=== PATIENT | female | born 1990 | race Caucasian/White ===

== ENCOUNTER 2017-09-24 07:05 | Emergency (ER) | payer SELFPAY ==
--- NOTE | 2017-09-24 07:18 | ED Physician Documentation ---
General Adult - HISTORIAN Historian: patient - HPI Stated Complaint: dental pain Chief Complaint: General Adult Additional Information: left upper dental pain. Ibuprofen helped in the middle of the night. Face swollen. Onset: hours - ROS CONST: denies: fever - PAST HX Past History: other (just had wisdom teeth extracted) Allergies/Adverse Reactions: Allergies Allergy/AdvReac Type Severity Reaction Status Date / Time No Known Allergies Allergy Verified 09/24/17 07:14 Home Medications: Ambulatory Orders Medication Instructions Recorded NK [NK] 03/31/16 - SOCIAL HX Smoking History: cigarettes (1 PPD) - FAMILY HX Family History: No - VITAL SIGNS Vital Signs: Vital Signs Temp Pulse Resp BP Pulse Ox 140/88 03/31/16 12:20 - REVIEWED ASSESSMENTS Nursing Assessment Reviewed: Yes Vitals Reviewed: Yes General Adult Physical Exam - PHYSICAL EXAM GENERAL APPEARANCE: moderate distress EENT: eye inspection normal, pharynx normal, other (left face swollen. #5 with large cavity. No discteet abscess palpable) NECK: normal inspection, supple RESPIRATORY: no resp distress, breath sounds normal CVS: reg rate & rhythm, heart sounds normal BACK: normal inspection, no CVA tenderness (no vertebral tenderness) SKIN: warm/dry, normal color EXTREMITIES: no evidence of injury NEURO: CN's nml as tested, motor nml, sensation nml Discharge Clincal Impression: Pain due to dental caries Referrals: Primary Doctor,No [Primary Care Provider] - 2 Days Additional Instructions: See the dentist as soon as possible. Condition: Fair Disposition: 01 HOME, SELF-CARE Decision to Admit: NO Decision Time: 07:20
[2017-09-24 07:34] VITALS: BP 138/97
== END 2017-09-24 07:32 | disposition home or self-care (01) ==
LOC: ED 07:05
DX: M02.9 Reactive arthropathy, unspecified (principal)
CPT/HCPCS: 99282

== ENCOUNTER 2018-06-21 15:29 | Emergency (ER) | payer OTHER ==
[2018-06-21] MEDS ORDERED: BENZATHINE IM ONE (15:59)
[2018-06-21] MEDS ORDERED: DISP SYRIN IM ONE (15:59)
[2018-06-21] MEDS ORDERED: PENICILLIN IM ONE (15:59)
--- NOTE | 2018-06-21 16:02 | ED Physician Documentation ---
Sore Throat/Dental Pain - HISTORIAN Historian: patient - HPI Stated Complaint: sore throat Chief Complaint: Sore Throat Onset: hours Further Comments: yes (28 year old male patient presents with complaint of sore throat which started this morning.) - ROS CONST: no problems CVS/RESP: none GI/: denies: nausea, vomiting MS/SKIN/LYMPH: denies: muscle aches NEURO/PSYCH: none - PAST HX Past History: gum disease Allergies/Adverse Reactions: Allergies Allergy/AdvReac Type Severity Reaction Status Date / Time No Known Allergies Allergy Verified 06/21/18 15:57 - SOCIAL HX Smoking History: cigarettes - FAMILY HX Family History: No - VITAL SIGNS Vital Signs: Vital Signs Temp Pulse Resp BP Pulse Ox 97.7 F 82 16 123/65 99 06/21/18 15:32 06/21/18 16:15 06/21/18 16:15 06/21/18 16:15 06/21/18 16:15 - REVIEWED ASSESSMENTS Nursing Assessment Reviewed: Yes Vitals Reviewed: Yes Progress - Progress Progress: Treatment options discussed - patient prefers IM injection rather than PO antibiotics "it hurts to swallow" ED Results Lab/Radiology - Orders Orders: ED Orders Category Date Time Status Rapid Strep [GRP A STREP SCREEN] Stat Lab 06/21/18 15:56 Ordered Penicillin G Benzathine [Bicillin l-A] Med 06/21/18 15:59 Discontinued 1,200,000 units IM NOW ONE Sore throat Physical Exam - EXAM General Appearance: mild distress Mouth/Throat: lips nml, gums nml, voice nml, no drooling, no air way problems, no thrush, membranes nml, pharyngeal erythema, tonsillar exudate Respiratory: no resp. distress, breath sounds nml CVS: reg. rate & rhythm, heart sounds nml Abdomen: soft, no organomegaly, normal bowel sounds, no abdominal bruit, no distension Extremities: non-tender, nml ROM Skin: normal color, warm/dry, NR, INT, PAL, DR Neuro/Psych: oriented x3, mood/affect nml Discharge Clincal Impression: Strep pharyngitis Referrals: Primary Doctor,No [Primary Care Provider] - 2 Days Condition: Stable Disposition: HOME, SELF-CARE Decision to Admit: NO Decision Time: 16:02
[2018-06-21 16:28] VITALS: BP 123/65
== END 2018-06-21 16:15 | disposition home or self-care (01) ==
LOC: ED 15:29
DX: J02.0 Streptococcal pharyngitis (principal); B95.0 Streptococcus, group A, as the cause of diseases classified elsewhere; Z72.0 Tobacco use
CPT/HCPCS: 87880; 96372; 99282; 99284; J0561

== ENCOUNTER 2019-05-01 11:50 | Emergency (ER) | payer SELFPAY ==
--- NOTE | 2019-05-01 12:06 | ED Physician Documentation ---
General Adult - HISTORIAN Historian: patient - HPI Stated Complaint: dental pain Chief Complaint: General Adult Onset: hours Timing: still present Severity: moderate Further Comments: yes (Pt is a 29 yo female with dental pain since this am. Pt has poor dentition and has been unable to afford dental care. No fever.) - ROS CONST: no problems EYES/ENT: other (dental pain) CVS/RESP: none GI/: none MS/SKIN/LYMPH: none - PAST HX Past History: none Allergies/Adverse Reactions: Allergies Allergy/AdvReac Type Severity Reaction Status Date / Time No Known Allergies Allergy Verified 05/01/19 12:06 Home Medications: Ambulatory Orders Medication Instructions Recorded NK 05/01/19 - SOCIAL HX Smoking History: cigarettes - FAMILY HX Family History: No - VITAL SIGNS Vital Signs: Vital Signs Temp Pulse Resp BP Pulse Ox 123/65 06/21/18 16:15 - REVIEWED ASSESSMENTS Nursing Assessment Reviewed: Yes Vitals Reviewed: Yes Progress - Progress Progress: Rx Penicillin VK 500 mg. Take one by mouth every 8 hours for 10 days. Rx [place] (5/325). Take one or two every 4 to 6 hours as needed for moderate to severe pain. General Adult Physical Exam - PHYSICAL EXAM GENERAL APPEARANCE: moderate distress EENT: other (poor dentition, mild swelling, fractured rear molar on the lower L) NECK: normal inspection, supple. No: lymphadenopathy RESPIRATORY: no resp distress, chest non-tender, breath sounds normal CVS: reg rate & rhythm, heart sounds normal BACK: normal inspection SKIN: warm/dry, normal color EXTREMITIES: non-tender, normal range of motion, no evidence of injury NEURO: oriented X3, motor nml, sensation nml Discharge Clincal Impression: Pain due to dental caries Referrals: Primary Doctor,No [Primary Care Provider] - Condition: Stable Disposition: HOME, SELF-CARE Decision to Admit: NO Decision Time: 12:05
[2019-05-01 13:05] VITALS: BP 145/90
== END 2019-05-01 12:15 | disposition home or self-care (01) ==
LOC: ED 11:50
DX: K02.9 Dental caries, unspecified (principal)
CPT/HCPCS: 99283; 99284